=== PATIENT | male | born 1940 | race Caucasian/White ===

== ENCOUNTER 2016-10-06 10:37 | Observation (INO) | payer MEDICARE ==
[2016-10-06 11:06] VITALS: BMI 24.0
--- NOTE | 2016-10-06 12:07 | EDPRACDOC ---
- General Information Chief Complaint: Psychiatric Illness Stated Complaint: LT HAND INJURY Time Seen by Provider: 10/06/16 11:51 Mode of Arrival: Law Enforcement Home Medications: Home Medications Aspirin (Enteric Coated) [Ecotrin] 81 mg PO DAILY 10/06/16 Bupropion HCl [Wellbutrin Xl] 150 mg PO DAILY 10/06/16 Furosemide [Lasix] 20 mg PO DAILY 10/06/16 La Sal Carbonate [La Sal Carbonate ER] 450 mg PO DAILY 10/06/16 Metoprolol Succinate (XL) [Toprol Xl] 50 mg PO DAILY 10/06/16 Allergies/Adverse Reactions: Allergies Allergy/AdvReac Type Severity Reaction Status Date / Time No Known Allergies Allergy Verified 10/06/16 11:07 - History of Present Illness Onset: 5 DAYS HPI: PATIENT PRESENTS C/O VISUAL HALLUCINATIONS. PATIENT HAS HAD PSYCHIATRIC ILLNESS IN THE PAST AND WA PLACED ON LITHIUM AND WELLBUTRIN. HE STOPPED ON HIS OWN AND BECAME INVOLVED IN DRUGS OVER THE LAST FEW MONTHS. X- HAS COME AND HELPED HIM STRAIGHTEN HIS LIFE OUT INCLUDING RETURNING TO GET MEDICATIONS FILLED AND TAKEN. PATIENT STATES SINCE HE BEGAN MEDICATIONS OF WELLBUTRIN AND LITHIUM HE HAS HAD PSYCHEDELIC COLORS IN FRONT OF HIS VISION WELL PARANOIA. X- STATES HE CALLED POLICE BECAUSE HE WAS SEEING PEOPLE IN HIS HOUSE WHO WERE NOT THERE. PATIENT STATES HE FELL YESTERDAY AND GOT AN ABRASION ON LEFT HAND Reason for Seeking Treatment: Family Presents With: Reports: Unclear Thinking, Confusion, Visual Hallucinations Expresses: Reports: None Tetanus Up To Date?: Yes Able to Care for Self: No Able to Control Self: No Associated Signs and Symptoms: Reports: Anxiety, Depression ED Past Medical History - History Reviewed Yes Nurses notes reviewed and agree except as marked Travel Outside of [place] in the Last 3 Months?: No - Patient Medical History Cardiac History: Reports: Hypertension Psychological History: Reports: Depression - Social Medical History ETOH: Abuse Substance Abuse: Illicit Drugs Lives With: Family Lives In: Home EDM Review of Systems - Review of Systems ROS Negative Except as Marked: Yes All systems reviewed and were negative except as marked Constitutional: Fatigue. negative: Chills, Fever, Loss of Appetite, Weakness Eyes: No Symptoms Reported. negative: Redness, Blurred Vision, Double Vision, Discharge, Pain, Light Sensitive, Photophobia Ears: No Symptoms Reported. negative: Pain, Hearing Loss, Drainage, Ear Pulling Throat: No Symptoms Reported. negative: Pain, Swelling Nose: No Symptoms Reported. negative: Congestion, Bleeding, Discharge, Injection, Swelling, Deformity, Ecchymosis, Tender, Abrasion, Laceration Mouth: No Symptoms Reported. negative: Pain, Drooling Respiratory: No Symptoms Reported. negative: Cough, Brassy Cough, Barky Cough, Shortness of Breath, Wheezing, Hemoptysis Cardiovascular: No Symptoms Reported. negative: Chest Pain, Palpitations, Syncope, Edema, Orthopnea, PND, Skin Mottling, Cyanosis Gastrointestinal: No Symptoms Reported. negative: Pain, Constipation, Nausea, Vomiting, Diarrhea, Melena, Formula Intolerance Genitourinary: No Symptoms Reported. negative: Dysuria, Hematuria, Frequency, Discharge, Bleeding, Testicular Pain, Neurological: No Symptoms Reported. negative: Headache, Dizziness, Seizure, Numbness, Weakness, Speech Difficulty, Gait Difficulty Musculoskeletal: No Symptoms Reported. negative: Neck, Chestwall, Ribs, Back, Shoulder, Arm, Elbow, Forearm, Wrist, Hand, Pelvis, Hip, Femur, Knee, Leg, Ankle , Foot Integumentary: No Symptoms Reported. negative: Itching, Rash, Bruising, Wound Allergic/Immunologic: No Symptoms Reported. negative: Hives, Itching Hematologic: No Symptoms Reported. negative: Lymphadenopathy, Easy Bruising, Easy Bleeding Endocrine: No Symptoms Reported. negative: Weight Gain, Weight Loss Psychiatric: Hallucinations. negative: Anxiety, Depression, Insomnia, Suicidal - Physical Exam Constitutional: Alert (Awake), No apparent distress Oriented to: Time, Person, Place Last recorded Vital Signs: Last Vital Signs Temp 98.0 F 10/06/16 10:57 Pulse 78 10/06/16 11:55 Resp 18 10/06/16 11:55 BP 162/70 10/06/16 11:55 Pulse Ox 95 10/06/16 11:55 Oxygen Pulse Oxygen Saturation 95 O2 Device Room Air Oxygen Flow Rate Fraction of Inspired Oxygen ( FIO2) - HEENT Head: Normal ( normocephalic) Eye Exam: Normal (PERRL, EOMI, Sclera white) Oropharynx: Normal (Pharynx:Moist without exudate,Gums-no swelling) Tympanic Membrane: Normal ENT EAC: Normal TMJ: Normal Nose: No Symptoms Reported (septum midline) Neck: Normal (FROM, trachea at midline) - Respiratory/Cardiovascular Respiratory: Normal - CTA (BBS clear to auscultation without adventitious sounds ) Cardiovascular: Normal (RRR without murmur, gallop or rub) - GI Auscultation: Normal (NABS) Palpation: Normal (Soft,No rebound or guarding, non distended) Tenderness: Non tender Goodson's Sign: Negative - Musculoskeletal Back: Normal (Non-Tender) Extremities: Normal (Normal tone, Pulses 2+ No cyanosis or edema, FROM) - Integumentary Skin: Normal, Warm, Dry Lymphatics: Normal (no adenopathy) - Neurologic Memory Impaired: Normal Motor Function: Normal (Normal tone, Pulses 2+ No cyanosis or edema, FROM) Cranial Nerve: Normal (CN II-X11 intact sensation, strength 5/5) Cerebellar: Normal Mood Description: Normal Thought: Coherent Perception: Visual Hallucinations - Results 10/06/16 12:13 10/06/16 12:13 Decision Time to Discharge: 13:19 - Departure Yes I personally saw and evaluated the patient. Disposition: Home Condition: Good Final Diagnosis: Visual hallucination, Acute psychosis Abrasion of hand, left Qualifiers: Encounter type: initial encounter Qualified Code(s): S60.512A - Abrasion of left hand, initial encounter Education/Counseling Given To: Patient Education/Counseling Given Regarding: Diagnosis, Treatment, Prognosis Referrals: Jesus Falk MD [Primary Care Provider] - One Week
[2016-10-06 12:20] LABS: AUTOMATED BASOPHIL 0.6 % (0-2); AUTOMATED EOSINOPHIL 0.8 % (0-5); AUTOMATED LYMPH 6.5 % (17-44); AUTOMATED MONOCYTE 6.7 % (3-10); AUTOMATED NEUTROPHIL 85.4 % (45-76)
[2016-10-06 12:38] LABS: BLOOD UREA NITROGEN 16 MG/DL (9-20); CALCIUM 9.4 MG/DL (8.4-10.2); CALCULATED OSMOLALITY 268 MOs/Kg (270-290); CHLORIDE 100 mEq/L (98-107); ETOH-MGDL < 10 mg/dL; GLUCOSE 78 MG/DL (70-99); SODIUM LEVEL 139 mEq/L (137-146); TOTAL PROTEIN 6.8 G/DL (6.3-8.2)
--- NOTE | 2016-10-06 13:15 | DIRPT ---
CLINICAL DATA: Fall, fell awhile ago per patient though time not specified, confusion, hallucinations EXAM: CT HEAD WITHOUT CONTRAST TECHNIQUE: Contiguous axial images were obtained from the base of the skull through the vertex without intravenous contrast. COMPARISON: None FINDINGS: Generalized atrophy. Normal ventricular morphology. No midline shift or mass effect. Otherwise grossly normal appearance of brain parenchyma. No intracranial hemorrhage, mass lesion, evidence acute infarction or extra-axial fluid collection. Visualized paranasal sinuses and mastoid air cells clear. Bones unremarkable. IMPRESSION: Generalized atrophy. No acute intracranial abnormalities. Electronically Signed By: Justus Anthony M.D. On: 10/06/2016 13:13
[2016-10-06] MEDS ORDERED: ONDANSETRON HCL 4 MG ODT TAB PO PRN (13:20)
[2016-10-06] MEDS ORDERED: TEMAZEPAM 15 MG CAP PO PRN (13:20)
[2016-10-06] MEDS ORDERED: Docusate Sodium 100 MG CAP PO PRN (13:20)
[2016-10-06] MEDS ORDERED: MAGNESIUM HYDROXIDE 30 ML BOTTLE PO PRN (13:20)
[2016-10-06] MEDS ORDERED: LORAZEPAM 1 MG TAB PO PRN (13:20)
[2016-10-06] MEDS ORDERED: GUAIFENESIN 200 MG/10 ML UDC PO PRN (13:20)
[2016-10-06] MEDS ORDERED: IBUPROFEN 400 MG TAB PO PRN (13:20)
[2016-10-06] MEDS ORDERED: ACETAMINOPHEN 325 MG/TAB TABLET PO PRN (13:20)
--- NOTE | 2016-10-06 13:27 | DIRPT ---
CLINICAL DATA: Pain following fall EXAM: LEFT HAND - COMPLETE 3+ VIEW COMPARISON: None. FINDINGS: Frontal, oblique, and lateral views were obtained. There is no fracture or dislocation. There is osteoarthritic change in the first carpal -metacarpal joint. There is also mild narrowing of all MCP joints. There is mild osteoarthritic change in the first IP, second PIP, and second DIP joints. No erosive changes. 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 No fracture or dislocation. Electronically Signed By: Temo Hogan III, M.D. On: 10/06/2016 13:25
[2016-10-06 13:47] LABS: ALL NEG? YES; MDMA* NEG (NEGATIVE); METHAMPHETAMINES NEG (NEGATIVE); OXYCODONE NEG (NEGATIVE)
[2016-10-06 13:59] LABS: LEUKOCYTES/URINE 1+ (NEGATIVE); NITRITE/URINE NEG (NEGATIVE); RBC/URINE 0-2 (0-2); URINE OCCULT BLOOD NEG (NEG/TRACE)
[2016-10-06] MEDS: RISPERIDONE 1 MG TAB PO SCH (20:39)
[2016-10-07] MEDS: RISPERIDONE 1 MG TAB PO SCH (08:43)
[2016-10-07] MEDS ORDERED: METOPROLOL (TOPROL-XL) 50 MG TAB PO SCH (09:00)
[2016-10-07] MEDS ORDERED: BuPROPion 150 MG XL TAB PO SCH (09:00)
[2016-10-07] MEDS ORDERED: FUROSEMIDE 20 MG TAB PO SCH (09:00)
[2016-10-07] MEDS ORDERED: RISPERIDONE 1 MG TAB PO SCH ×2 (11:00→21:00)
[2016-10-07 11:41] VITALS: PULSE 69
--- NOTE | 2016-10-07 11:48 | EDTUNOTE ---
- SOAP Note Patient Problems: Active Problems Abrasion of hand, left (Acute) S60.512A Acute psychosis (Acute) F23 Visual hallucination (Acute) R44.1 Time Seen By Provider: 08:45 SOAP Note: 0845 10/07/2016 S: PT PRESENTS DUE TO VISUAL HALLUCINATIONS AND PARANOIA. PT HAS BEEN ON LITHIUM AND WELLBUTRIN IN THE PAST AND HAS BEEN SEEING PEOPLE WHO ARE NOT THERE AND PSYCHEDELIC COLORS. PT HAS PMH OF DRUG AND ETOH ABUSE. O: 76 YEAR OLD MALE IN NO ACUTE DISTRESS. EATING BREAKFAST DURING EXAM CARDIAC: RRR, NO GALLOP OR MURMUR NOTED CHEST/LUNGS: BILATERAL BREATH SOUNDS NOTED AND CLEAR ABDOMEN: SOFT, NON-TENDER, BOWEL SOUNDS NOTED A: ACUTE PSYCHOSIS P: CONTINUE WITH PSYCH PLAN AND EVALUATION
[2016-10-07 14:21] VITALS: BP 127/65; TEMP 97.9
== END 2016-10-07 14:35 | disposition home health service (06) ==
LOC: ED 10:37 → EDINP 13:22 → TUOBSINP 14:04
PROVIDERS: ADMIT Emergency Medicine; ATTEND Emergency Medicine
DX: R44.1 Visual hallucinations (principal); F23 Brief psychotic disorder; S60.512A Abrasion of left hand, initial encounter; W19.XXXA Unspecified fall, initial encounter; I10 Essential (primary) hypertension; Z79.82 Long term (current) use of aspirin; Z79.899 Other long term (current) drug therapy; R41.82 Altered mental status, unspecified
CPT/HCPCS: 36415; 70450; 73130; 80053; 80178; 80307; 81001; 85025; 86592; 87086; 99284; A9270; G0378; G0480; 80329; J3490